=== PATIENT | male | born 1940 | race Caucasian/White ===

== ENCOUNTER → 2017-05-20 | Outpatient (CLI) | payer MEDICARE, BC ==
--- NOTE | 2017-05-20 18:40 | PCVCIMAG ---
EXAM: AORTOILIAC DUPLEX INDICATION: Abdominal aortic aneurysm FINDINGS: AORTA: Suprarenal aorta measures maximum diameter of 2.9 cm. There is a fusiform infrarenal aortic aneurysm. The infrarenal aorta measures maximum diameter of 3.3 x 3.9 cm. No aortic stenosis. RIGHT COMMON ILIAC ARTERY: Maximum diameter is 1.9 x 2.0 cm. No significant stenosis. RIGHT EXTERNAL ILIAC ARTERY: No significant stenosis. LEFT COMMON ILIAC ARTERY: Maximum diameter is 2.1 x 2.5 cm. No significant stenosis. LEFT EXTERNAL ILIAC ARTERY: No significant stenosis. IMPRESSION: 3.9 cm infrarenal abdominal aortic aneurysm compares to 3.6 cm on July 2016 study. 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 2.5 cm fusiform aneurysm lower left common iliac artery. LOC:[id number]
== END | disposition home or self-care (01) ==
LOC: PCVCIMAG 10:02
PROVIDERS: ATTEND Internal Medicine Cardiovascular Disease
DX: I71.4 Abdominal aortic aneurysm, without rupture (principal); I72.3 Aneurysm of iliac artery; I25.810 Atherosclerosis of coronary artery bypass graft(s) without angina pectoris; I10 Essential (primary) hypertension; E78.00 Pure hypercholesterolemia, unspecified; I77.9 Disorder of arteries and arterioles, unspecified; J44.9 Chronic obstructive pulmonary disease, unspecified; M19.90 Unspecified osteoarthritis, unspecified site; Z79.899 Other long term (current) drug therapy; Z95.5 Presence of coronary angioplasty implant and graft; Z87.891 Personal history of nicotine dependence
CPT/HCPCS: 80061; 93005; 93978; G0463

== ENCOUNTER → 2018-02-08 | Outpatient (CLI) | payer MEDICARE, BC | END | disposition home or self-care (01) | LOC: PCVCIMAG 14:38 | DX: Z01.818 Encounter for other preprocedural examination (principal); I25.10 Atherosclerotic heart disease of native coronary artery without angina pectoris; I10 Essential (primary) hypertension; E78.5 Hyperlipidemia, unspecified; J44.9 Chronic obstructive pulmonary disease, unspecified; Z95.1 Presence of aortocoronary bypass graft | CPT/HCPCS: 93325; 93351 ==

== ENCOUNTER → 2018-06-21 | Outpatient (CLI) | payer MEDICARE, BC ==
--- NOTE | 2018-06-21 12:16 | PCVCIMAG ---
EXAM: AORTOILIAC DUPLEX INDICATION: Peripheral arterial disease. Abdominal aortic aneurysm. FINDINGS: AORTA: Suprarenal aorta measures maximum diameter of 3.0 cm. There is a fusiform infrarenal aortic aneurysm. The infrarenal aorta measures maximum diameter of 3.3 x 3.9 cm. No aortic stenosis. RIGHT COMMON ILIAC ARTERY: Maximum diameter is 1.6 cm. No significant stenosis. RIGHT EXTERNAL ILIAC ARTERY: Increased systolic velocity of 442 cm/s distal vessel consistent with 80% stenosis. LEFT COMMON ILIAC ARTERY: Maximum diameter is 1.7 cm. No significant stenosis. LEFT EXTERNAL ILIAC ARTERY: Increased systolic velocity of 415 cm/s proximal/mid vessel consistent with 80% stenosis. IMPRESSION: 3.9 cm infrarenal abdominal aortic aneurysm. 80% stenosis distal right external iliac artery. 80% stenosis proximal/mid left external iliac artery. LOC:[id number]
--- NOTE | 2018-06-21 12:26 | PCVCIMAG ---
EXAM: RIGHT LOWER EXTREMITY ARTERIAL DUPLEX INDICATION: Peripheral Arterial Disease. Leg pain. FINDINGS: Right Leg: Blunted arterial waveform in the common femoral artery consistent with patient's known 80% right external iliac artery stenosis. Common femoral and profunda femoral arteries otherwise patent. 80% stenosis mid [place] superficial femoral artery. Complete occlusion proximal popliteal artery. Mid and distal popliteal artery show extremely blunted arterial flow. It is difficult to obtain arterial waveforms and infrapopliteal vessels which could indicate occlusion or be related to the more proximal severe stenoses. IMPRESSION: 80% stenosis mid [place] right superficial femoral artery. Segmental occlusion proximal right popliteal artery. Right infrapopliteal vessels not adequately seen as reviewed above. LOC:[id number]
== END | disposition home or self-care (01) ==
LOC: PCVCIMAG 09:08
PROVIDERS: ATTEND Family Medicine
DX: I25.10 Atherosclerotic heart disease of native coronary artery without angina pectoris (principal); R07.89 Other chest pain; R06.02 Shortness of breath; I73.9 Peripheral vascular disease, unspecified; I10 Essential (primary) hypertension; E78.00 Pure hypercholesterolemia, unspecified; J44.9 Chronic obstructive pulmonary disease, unspecified; I71.4 Abdominal aortic aneurysm, without rupture; M79.604 Pain in right leg; Z87.891 Personal history of nicotine dependence
CPT/HCPCS: 36415; 93005; 93926; 93978; G0463

== ENCOUNTER → 2018-06-28 | Outpatient (CLI) | payer MEDICARE, BC ==
[~2018-06-28] MED LIST: ASPIRIN 325 MG TABLET ONE; CLOPIDOGREL BISULFATE 75 MG TABLET ONE; DIAZEPAM 10 MG TABLET. ONE; HEPARIN for ARTERIAL LINE 1,500 ML ONE; HEPARIN for SUB-Q USE 5,000 UNIT/ML VIAL. SQ ONE; IODIXANOL 270 MG/ML 100 ML VIAL. ONE; IOHEXOL 350 MG/ML 100 ML VIAL. ONE; IV NORMAL SALINE 1000ML BAG 1,000 ML ONE; LIDOCAINE 1%/EPI 1:100,000 20 ML VIAL. ONE; MIDAZOLAM HCL/PF 2 MG/2 ML VIAL. ONE; WATER FOR INJECTION,STERILE 10 ML IJ ONE; ceFAZolin SODIUM 1 GM VIAL ONE; fentaNYL PF VIAL 100 MCG/2 ML VIAL ONE
--- NOTE | 2018-06-28 11:34 | PCVCINTER ---
EXAM: 1. AORTOGRAM AND BILATERAL LOWER EXTREMITY RUNOFF ANGIOGRAM 2. BILATERAL RENAL ANGIOGRAPHY 3 LEFT EXTERNAL ILIAC ARTERY STENT PLACEMENT. INDICATION: Peripheral arterial disease. Coronary artery disease. 1-2 block right calf and foot claudication. Hypertension. Renal atherosclerosis. No prior catheter based angiographic study is available. A full diagnostic angiogram study is performed today and the decision to intervene is based on this diagnostic study. PROCEDURE: Procedure and risks of angiography intervention is appropriate including limb loss stroke and were discussed with the patient's family and consent obtained. The patient's left groin was prepped in the normal sterile fashion. IV conscious sedation was used throughout procedure with appropriate monitoring from 9:00 AM through 10:30 AM. Ultrasound was used to interrogate the left groin and showed the left common femoral artery to be patent. A permanent spot film was obtained. Under ultrasound guidance access into the left common femoral artery was obtained and a 5 [place] sheath was placed. Through this a 5 [place] flush catheter was placed into the abdominal aorta at the level of the renal arteries and AP aortogram was performed. Catheter was positioned at the aortic bifurcation and both oblique views of the pelvis were obtained. Catheter was positioned into the left external iliac artery and left leg runoff angiography was performed. Catheter was exchanged for a visceral catheter was placed into the right renal arteries and right renal angiograms obtained. Catheter was placed into the the left renal arteries and left renal angiograms were obtained. Catheter was advanced to the level of the right external iliac artery and right leg runoff angiography was obtained. Patient was given 4500 units of heparin. Stent placement across the areas of high-grade stenosis in the left external iliac artery was carried out with a 10 x 40 Smart control stent with subsequent dilatation to 7.0 mm. Follow-up angiogram was performed. Catheters and wires removed. Dr. De Guzman joined the procedure and he performed coronary angiography. Please see his separate dictation for full details. Sheath was removed and hemostasis obtained using the FISH device. No immediate complications. FINDINGS: Aortogram: There are 2 right and one left renal artery. Moderate plaque infrarenal abdominal aorta with note made of a small fusiform infrarenal abdominal aortic aneurysm seen on recent ultrasound measuring 3.9 cm. Pelvis: Moderate ectasia mid and distal right common iliac artery measured 1.9 cm on recent ultrasound. Fusiform aneurysmal dilatation throughout the left common iliac artery measuring up to 2.5 cm on recent ultrasound. The right internal iliac artery is occluded. 80% stenosis origin left internal iliac artery. Extensive bulky plaque throughout the proximal and mid right external iliac artery causing areas of 95% stenosis. Similar plaque in the proximal left external iliac artery results in 95% stenosis. Moderately extensive plaque throughout the common femoral artery with areas of 50 and 60% stenosis. 90% stenosis at the junction of the right common femoral with the profunda femoral and superficial femoral arteries. Moderate plaque throughout the left common femoral artery causing more mild stenosis. 90% stenosis at the junction of the left common femoral and left profunda femoral artery. Right renal artery: There are 2 renal arteries. Both show good patency throughout. Left renal artery: Mild plaque proximal vessel does not cause significant stenosis. Right leg: Extensive exophytic plaque throughout the superficial femoral artery causing 90% stenosis of the proximal vessel and areas of subtotal occlusion in the mid vessel. The distal most superficial femoral artery shows complete occlusion as does the popliteal artery. There is refilling of the tibioperoneal trunk which runs off into moderate-sized patent peroneal and posterior tibial arteries into moderate-sized plantar arteries. The anterior tibial artery is occluded throughout. Left le% stenosis due to eccentric plaque proximal superficial femoral artery. Extensive bulky plaque in the mid/distal [place] superficial femoral artery causing areas of 95% stenosis. Upper popliteal artery shows mild ectasia with good patency. Irregular plaque mid popliteal artery results in 90% stenosis. The anterior tibial artery is occluded throughout its length. The tibioperoneal trunk, peroneal artery and posterior tibial arteries show satisfactory patency throughout. Runoff into moderate-sized plantar arteries and a moderate size dorsalis pedis. Left external iliac artery: Following procedure as above there is improved patency in the proximal external iliac artery with 30% residual due to some due to mild recoil of the stent. IMPRESSION: Small fusiform infrarenal abdominal aortic aneurysm with aneurysmal dilatation of the left common iliac artery as well as extensive exophytic plaques causing areas of severe stenosis in the right and left external iliac arteries, right greater left common femoral arteries, and at the origins of the right left profunda femoral arteries and right superficial femoral artery. Given the severe nature and extent of the calcific plaques treatment with aortobifemoral graft and bilateral common femoral artery artery endarterectomies. Arrangements will be made for the patient to discuss this further with Dr. Samir London of cardiovascular surgery. 95% stenosis proximal left external iliac artery was treated with stent placement to preserve access for cardiac catheterization to follow. Note was made of mild recoil of the stent due to the severe nature of the plaques. Right SFA/popliteal occlusion. Severe stenosis left SFA and mid left popliteal artery. LOC:[id number]
--- NOTE | 2018-06-28 14:06 | PCVCIMAG ---
EXAM: BILATERAL CAROTID DUPLEX INDICATION: Carotid Occlusive Disease. FINDINGS: Doppler Measurements (centimeters per second): RIGHT: Peak CCA-73, Peak ECA-132, Diastolic ICA-19, Peak ICA-67, ICA/CCA Ratio-0.9. LEFT: Peak CCA-55, Peak ECA-40, Diastolic ICA-15, Peak ICA-62, ICA/CCA Ratio-1.3. RIGHT CAROTID: The carotid bulb has moderate plaque. The proximal internal carotid artery shows <40% stenosis. The common carotid artery shows no significant stenosis. The external carotid artery shows 40% stenosis. LEFT CAROTID: The carotid bulb has moderate plaque. The proximal internal carotid artery shows <40% stenosis. The common carotid artery shows no significant stenosis. The external carotid artery shows no significant stenosis. Antegrade flow in both vertebral arteries. IMPRESSION: <40% stenosis of the right internal carotid artery with moderate plaque. <40% stenosis of the left internal carotid artery with moderate plaque. LOC:[id number]
--- NOTE | 2018-06-28 16:48 | PCVCINTER ---
APPROVED REPORT Study performed: 06/28/2018 10:21:15 Patient Details Patient Status: Out-Patient Room #: 2 The patient is a 78 year-old Male Event Personnel Monica Seo RT(R)(), Naveen Dawson RT(R)(), Daina Amor RN, Santiago De Guzman MD Risk Factors Arterial HypertensionDysplipidemia (Type: 1), Peripheral Vascular Disease, Chronic Lung DiseaseHypercholesterolemia, Last Creatanine 0.9Tobacco History (Former) Previous Procedures/Diagnoses Previous CABGPrevious PCI, Previous Femoral Procedure Procedure Narrative The right coronary system was accessed and visualized with a JR4 catheter. The left coronary system was accessed and visualized with a JL4 catheter. The left ventricle was accessed and visualized with a Pigtail catheter. Left ventriculogram was performed in HOLDEN projection. Closure device was deployed with a 6 Fr Fish. Hemostasis was obtained with manual pressure following sheath removal without any complications. The patient tolerated the procedure well and there were no complications associated with the procedure. There was no hematoma. Hemodynamics The aortic pressure is 137/43 mmHg with a mean of 86 mmHg. The left ventricular pressure is 130/4 mmHg with a mean of 4 mmHg. Conclusion #1 left main is large and ectatic with a distal narrowing of 50-60% giving rise to an occluded LAD and a dominant circumflex system. #2 LAD occludes proximally is filled via a MILLER graft. #3 circumflex OM is large ectatic vessel the first and second OM branches are occluded these are bypassed the distal circumflex is diffusely diseased but no high-grade occlusive disease for intervention. #4 nondominant right moderately diseased #5 MILLER to LAD intact with mild diffuse disease distally #6 and SVG or radial graft to a diagonal is intact provides some competitive filling to the LAD system #7 there is a high bifurcating graft that goes to OM1 OM 22 separate grafts off of a common origin no occlusive disease is noted. The more distal OM branch provide some collateral filling to the inferior wall #8 normal left ventricular size mild inferior basilar hypokinesis EF is 50-55% Recommendations and plan continue aggressive risk factor modification no indication for coronary intervention.
== END | disposition home or self-care (01) ==
LOC: PCVCINTER 08:05
PROVIDERS: ATTEND Internal Medicine Cardiovascular Disease
DX: I70.213 Atherosclerosis of native arteries of extremities with intermittent claudication, bilateral legs (principal); I25.10 Atherosclerotic heart disease of native coronary artery without angina pectoris; I70.1 Atherosclerosis of renal artery; I65.23 Occlusion and stenosis of bilateral carotid arteries; I70.0 Atherosclerosis of aorta; I10 Essential (primary) hypertension; Z95.1 Presence of aortocoronary bypass graft; Z87.891 Personal history of nicotine dependence; Z85.038 Personal history of other malignant neoplasm of large intestine; J44.9 Chronic obstructive pulmonary disease, unspecified; E78.00 Pure hypercholesterolemia, unspecified; M19.90 Unspecified osteoarthritis, unspecified site; Z98.890 Other specified postprocedural states; Z79.899 Other long term (current) drug therapy; Z79.2 Long term (current) use of antibiotics; Z93.3 Colostomy status
CPT/HCPCS: 36252; 37221; 75716; 76937; 93459; 93880; 99152; 99153; C1725; C1751; C1769; C1876; C1887; C1894; J0690; J1644; J2250; J3010; J3490; J7030; Q9967; 36246

== ENCOUNTER → 2018-12-21 | Outpatient (CLI) | payer MEDICARE, BC ==
--- NOTE | 2018-12-21 09:41 | PCVCIMAG ---
EXAM: NONINVASIVE ARTERIAL EXAMINATION OF BOTH LOWER EXTREMITIES INCLUDING PRE AND POST EXERCISE PRESSURE MEASUREMENTS AND DOPPLER WAVEFORMS INDICATION: Peripheral Arterial Disease. Leg pain. FINDINGS: Right Brachial: 150 mm Hg. Right Dorsalis Pedis: 48 mm Hg. Right Posterior Tibial: 111 mm Hg. Right AKIRA = 0.74. Left Brachial: 141 mm Hg. Left Dorsalis Pedis: 87 mm Hg. Left Posterior Tibial: 112 mm Hg. Left AKIRA = 0.75. Post Exercise: Right Brachial 174 mm Hg. Right Posterior Tibial: 60 mm Hg. Left Posterior Tibial: 73 mm Hg. Right AKIRA = 0.34. Left AKIRA = 0.42. IMPRESSION: Moderate resting ischemia in the right lower extremity. Severe exercise induced ischemia in the right lower extremity. Moderate resting ischemia in the left lower extremity. Moderately severe exercise induced ischemia in the left lower extremity. LOC:[id number]
--- NOTE | 2018-12-21 09:53 | PCVCIMAG ---
EXAM: AORTOILIAC DUPLEX INDICATION: Peripheral arterial disease FINDINGS: AORTA: Suprarenal aorta measures maximum diameter of 2.9 cm. There is a fusiform infrarenal aortic aneurysm. The infrarenal aorta measures maximum diameter of 3.3 x 3.9 cm. No aortic stenosis. RIGHT COMMON ILIAC ARTERY: Maximum diameter is 1.9 cm. Complete occlusion. RIGHT EXTERNAL ILIAC ARTERY: Complete occlusion. LEFT COMMON ILIAC ARTERY: Maximum diameter is 1.9 x 2.1 cm. Mild stenosis. LEFT EXTERNAL ILIAC ARTERY: Mild stenosis. IMPRESSION: 3.9 cm infrarenal abdominal aortic aneurysm is unchanged since May 2018 study. Interval development of complete occlusion of the right iliac arteries. Interval placement of a right axillary-right femoral bypass graft with right to left femoral-femoral artery bypass graft which shows good patency throughout. LOC:[id number]
== END | disposition home or self-care (01) ==
LOC: PCVCIMAG 07:42
PROVIDERS: ATTEND Nuclear Medicine Nuclear Cardiology
DX: I71.4 Abdominal aortic aneurysm, without rupture (principal); I73.9 Peripheral vascular disease, unspecified; I25.10 Atherosclerotic heart disease of native coronary artery without angina pectoris; I77.9 Disorder of arteries and arterioles, unspecified; I10 Essential (primary) hypertension; E78.00 Pure hypercholesterolemia, unspecified; J44.9 Chronic obstructive pulmonary disease, unspecified
CPT/HCPCS: 93924; 93978; G0463

== ENCOUNTER → 2019-07-21 | Outpatient (CLI) | payer MEDICARE, BC ==
--- NOTE | 2019-07-21 08:50 | PCVCIMAG ---
EXAM: BILATERAL CAROTID DUPLEX INDICATION: Carotid Occlusive Disease. FINDINGS: Doppler Measurements (centimeters per second): RIGHT: Peak CCA-83, Peak ECA-244, Diastolic ICA-12, Peak ICA-74, ICA/CCA Ratio-0.9. LEFT: Peak CCA-72, Peak ECA-34, Diastolic ICA-21, Peak ICA-92, ICA/CCA Ratio-1.3. RIGHT CAROTID: The carotid bulb has moderate plaque. The proximal internal carotid artery shows <40% stenosis. The common carotid artery shows no significant stenosis. The external carotid artery shows 70% stenosis. LEFT CAROTID: The carotid bulb has moderate plaque. The proximal internal carotid artery shows <40% stenosis. The common carotid artery shows no significant stenosis. The external carotid artery shows no significant stenosis. Antegrade flow in both vertebral arteries. IMPRESSION: <40% stenosis of the right internal carotid artery with moderate plaque. <40% stenosis of the left internal carotid artery with moderate plaque. No change since May 2018 study. LOC:[id number]
--- NOTE | 2019-07-21 11:33 | PCVCIMAG ---
EXAM: AORTOILIAC DUPLEX INDICATION: Peripheral arterial disease. Abdominal aortic aneurysm. FINDINGS: AORTA: Suprarenal aorta measures maximum diameter of 2.7 cm. There is a fusiform infrarenal aortic aneurysm. The infrarenal aorta measures maximum diameter of 3.4 x 4.0 cm. No aortic stenosis. RIGHT COMMON ILIAC ARTERY: Maximum diameter is 2.2 cm. Complete occlusion. RIGHT EXTERNAL ILIAC ARTERY: Complete occlusion. LEFT COMMON ILIAC ARTERY: Maximum diameter is 2.3 cm. No significant stenosis. LEFT EXTERNAL ILIAC ARTERY: No significant stenosis. IMPRESSION: 4.0 cm infrarenal abdominal aortic aneurysm compares to 3.9 cm in November 2018. Unchanged occlusion right common and external iliac arteries. Right subclavian-right common femoral artery bypass graft maintaining good patency. Right common femoral-left common femoral bypass graft maintaining good patency. Unchanged moderate stenosis upper left common femoral artery above the graft anastomosis. LOC:[id number]
--- NOTE | 2019-07-21 11:37 | PCVCIMAG ---
EXAM: BILATERAL LOWER EXTREMITY ARTERIAL DUPLEX INDICATION: Peripheral Arterial Disease. Leg pain. FINDINGS: Right Leg: Common femoral and profunda femoral arteries are patent. Unchanged occlusion mid/distal superficial femoral artery and [place] mid/upper popliteal artery. Distal popliteal artery refills. Occlusion throughout the posterior tibial artery. Occlusion of the anterior tibial artery. Peroneal artery is patent. Left Leg: Upper common femoral artery shows moderate stenosis. [place] femoral artery is patent. 95% stenosis distal [place] superficial femoral artery. Popliteal artery showing adequate patency. Occlusion of the anterior tibial artery. The peroneal and posterior tibial arteries are patent. IMPRESSION: Right to left femoral-femoral bypass graft maintaining adequate patency. Unchanged occlusion [place] mid/distal superficial femoral artery and proximal/mid popliteal artery. Occlusion of the right anterior and posterior tibial artery is unchanged. 95% stenosis distal [place] left superficial femoral artery unchanged. Unchanged occlusion left anterior tibial artery. LOC:[id number]
== END | disposition home or self-care (01) ==
LOC: PCVCIMAG 08:24
PROVIDERS: ATTEND Nuclear Medicine Nuclear Cardiology
DX: I65.23 Occlusion and stenosis of bilateral carotid arteries (principal); E78.00 Pure hypercholesterolemia, unspecified; I10 Essential (primary) hypertension; I71.4 Abdominal aortic aneurysm, without rupture; I25.10 Atherosclerotic heart disease of native coronary artery without angina pectoris; Z87.891 Personal history of nicotine dependence; J44.9 Chronic obstructive pulmonary disease, unspecified; Z79.899 Other long term (current) drug therapy
CPT/HCPCS: 93880; 93925; 93978